=== PATIENT | male | born 1945 | race Caucasian/White ===

== ENCOUNTER 2021-11-12 06:57 | Emergency (ER) | payer MEDICARE, OTHER ==
[~2021-11-12 06:57] MED LIST: ALDACTONE25 MG PO; ALLOPURINOL300 MG PO; AMARYL2 MG PO; BACTRIM DS TAB1 EACH PO; FLEXERIL10 MG PO; FLOMAX 0.4 MG0.4 MG PO; FLOMAX0.4 MG PO; HCTZ25 MG PO; JANUVIA50 MG PO; LANTUS **100 UNITS/ SC; LASIX20 MG PO; LASIX80 MG PO; LEVAQUIN750 MG PO; LEXAPRO20 MG PO; LOVASTATIN40 MG PO; NEURONTIN300 MG PO; NORCO 5-325 TA1 EACH PO; NORTRIPTYLINE H50 MG PO; NORVASC5 MG PO; PENTOXIFYLLINE400 MG PO; PLAVIX75 MG PO; PRILOSEC20 MG PO; SYNTHROID88 MCG PO; TOPROL XL 50 MG50 MG PO; TRAMADOL HCL50 MG PO; UROCIT-K10 MEQ PO; VITAMIN D250000 UNIT PO; VOLTAREN **OUT75 MG PO; XANAX0.25 MG PO; ZOCOR40 MG PO; vit d
[2021-11-12 08:49] LABS: BASOPHIL 0.3 % (0-2); EOSINOPHIL 0 % (0-7); HCT 35.7 % (42.0-52.0); HGB 11.8 g/dl (13.2-18.0); LYMPHOCYTE 2.4 % (15-48); MCH 32.1 pg (25.0-31.0); MCHC 33.1 g/dL (32.0-36.0); MONOCYTE 8.2 % (0-12); MPV 8.7 fL (6.0-9.5); NEUTROPHIL 88.6 % (41-80); NRBC 0; PLT 220 K/uL (150-400); RBC 3.68 M/uL (4.70-6.00); RDW 12.9 % (11.5-14.0); WBC 11.3 K/uL (4.0-10.5)
[2021-11-12 09:16] LABS: BUN/CREAT RATIO (CALC) 14.2 RATIO; CREATININE 1.27 mg/dL (0.67-1.17); POTASSIUM 4.4 mmol/L (3.5-5.1)
[2021-11-12 10:48] LABS: BILIRUBIN NEGATIVE (NEGATIVE); BLOOD TRACE-INTACT Ery/uL (NEGATIVE); CLARITY CLEAR (CLEAR); COLOR YELLOW (YELLOW); GLUCOSE (U) NORMAL (NORMAL); LEUKOCYTES 2+ Leu/uL (NEGATIVE); NITRITE NEGATIVE (NEGATIVE); PROTEIN NEGATIVE (NEGATIVE); pH 7.5 (5.0-9.0)
[2021-11-12 11:15] LABS: BACTERIA 4+
== END 2021-11-12 10:59 | disposition home or self-care (01) ==
LOC: FER 06:57
PROVIDERS: Emergency Medicine
DX: R53.1 Weakness (principal); R07.81 Pleurodynia; R07.9 Chest pain, unspecified; I10 Essential (primary) hypertension; W19.XXXA Unspecified fall, initial encounter; Y92.009 Unspecified place in unspecified non-institutional (private) residence as the place of occurrence of the external cause
CPT/HCPCS: 36415; 70450; 71046; 80048; 81001; 85025; 93005